=== PATIENT | male | born 1965 | race Caucasian/White ===

== ENCOUNTER 2021-07-09 01:03 | Inpatient (IN) | payer OTHER, BC ==
[2021-07-09] MEDS ORDERED: Norepinephrine 8 MG/0.9% NS 250 ML ONE (01:14)
[2021-07-09] MEDS ORDERED: Succinylcholine 200 MG/10 ml SYRINGE FS ONE (01:14)
[2021-07-09] MEDS ORDERED: EPINEPHrine 1 MG/10 ML Abboject SYRINGE ONE (01:16)
[2021-07-09 01:20] LABS: #Lymphocytes 1.7 thou/uL (1.20-3.40); #Neutrophils 15.9 thou/uL (1.40-6.50); %Basophils 0.2 % (0.0-1.0); %Eosinophils 0.2 % (0.0-10.0); %Lymphocytes 9.3 % (21.0-51.0); %Monocytes 5.4 % (0.0-10.0); %Neutrophils 84.8 % (42.0-75.0); Hemoglobin 14.8 g/dL (14.0-18.0); Mean Corpuscular HGB CONC 33.6 g/dL (32.0-36.0); Mean Corpuscular Hemoglobin 32.2 pg (27.0-31.0); Mean Corpuscular Volume 95.8 fL (78.0-98.0); Mean Platelet Volume 7.4 fL (7.4-10.4); Platelet Count 340 thou/uL (130-400); Red Blood Cell (RBC) Count 4.61 mill/uL (4.70-6.10); White Blood Cell (WBC) Count 18.7 thou/uL (4.8-10.8)
[2021-07-09 01:33] LABS: INR-International Normal Ratio 1.1; PTT 27.6 sec (22.9-36.1); Prothrombin Time 14.7 sec (12.0-14.7)
[2021-07-09 01:41] LABS: Bacteria/HPF None Seen HPF (None Seen); Bilirubin Negative (Negative); Blood, Urine 2+ (Negative); Clarity Clear (Clear); Glucose, Urine (Dipstick) Normal (Negative); Ketone, Urine Negative (Negative); Leukocyte Negative Leu/uL (Negative); Nitrite Negative (Negative); Protein, Urine (Dipstick) 70 mg/dL (Neg-Trace); RBC/HPF 0-3 HPF (0-3); Specific Gravity, Urine 1.026 (1.002-1.036); Squamous Epithelial 0-3 HPF (0-3); Urobilinogen Normal mg/dL (Less than 2); WBC/HPF 0-3 HPF (0-3)
[2021-07-09] MEDS ORDERED: Fentanyl 100 MCG/2 ML VIAL ONE (01:43)
[2021-07-09 01:44] LABS: ALT (SGPT) 79 U/L (8-55); AST (SGOT) 65 U/L (5-34); Albumin 3.7 g/dL (3.5-5.0); Alcohol 190 mg/dL (Less than 10); Alkaline Phosphatase 64 U/L (40-110); Anion Gap 19 mmol/L (10-20); BUN (Urea Nitrogen) 28 mg/dL (8.4-25.7); Bilirubin, Total 0.3 mg/dL (0.2-1.2); Calc. Creatinine Clearance 0 mL/min (70-130); Calcium 8.6 mg/dL (7.8-10.44); Carbon Dioxide 18 mmol/L (22-29); Chloride 109 mmol/L (98-107); Globulin 2.7 g/dL (2.4-3.5); Glucose 220 mg/dL (70-105); Potassium 4.8 mmol/L (3.5-5.1); Protein, Total 6.4 g/dL (6.0-8.3); Sodium 141 mmol/L (136-145)
[2021-07-09 01:50] LABS: Sperm/HPF 2+ HPF (None Seen)
[2021-07-09] MEDS ORDERED: Dextrose 50% Abboject 50 ML SYRINGE SLOW IVP PRN (02:00)
[2021-07-09] MEDS ORDERED: Sodium Chloride 0.9% 1,000 ML IV SCH ×3 (02:00→11:30)
[2021-07-09] MEDS ORDERED: HumaLOG 300 UNITS/3 ML VIAL SC PRN (02:00)
[2021-07-09] MEDS ORDERED: Ondansetron PF 4 MG/2 ML Vial IVP PRN (02:00)
[2021-07-09] MEDS ORDERED: Morphine 2 MG/ML VIAL SLOW IVP PRN (02:00)
[2021-07-09] MEDS ORDERED: Promethazine HCl 25 MG/ML VIAL IM PRN ×2 (02:00→14:09)
[2021-07-09] MEDS ORDERED: Dextrose 5% in Water 1,000 ML IV PRN (02:00)
[2021-07-09] MEDS ORDERED: Calcium Chloride 1 GM/10 ML Abboject SYRINGE ONE (02:10)
[2021-07-09] MEDS ORDERED: Sodium Bicarb 50 MEQ/50 ML Abboject 8.4% SYRINGE IVP SCH (02:15)
[2021-07-09] MEDS ORDERED: Calcium Chloride 13.6 MEQ in Sodium Chloride 0.9% 100 ML IVPB SCH (02:15)
[2021-07-09 02:25] LABS: Analyzer IN Cardio ER; Base Excess (BEa) -11.4 mEq/L (-2.0 to +3.0); CO2 Tension 41.1 mmHg (35.0-45.0); Calcium, Ionized (arterial) 1.08 mmol/L (1.12-1.30); Carboxyhemoglobin (COHb) 0.3 gm% (0.0-3.0); Hemoglobin (Hb) 15.2 g/dL (14.0-18.0); O2 Tension (PaO2), arterial 271.1 mmHg (80.0-100.0); Potassium - ABG Lab 4.81 mmol/L (3.70-5.30)
[2021-07-09 02:32] LABS: ALV-art Gradient 390.525 mmHg (0-20); Puncture Site RRA; pH, Arterial 7.21 (7.35-7.45)
[2021-07-09] MEDS ORDERED: Sodium Bicarbonate 100 MEQ in Dextrose 5% in Water 1,000 ML IV SCH (03:45)
[2021-07-09 04:01] LABS: SARS-CoV-2 NAA Rapid Test Not Detected (NotDetected)
[2021-07-09] MEDS: Sodium Chloride 0.9% 1,000 ML IV SCH ×5 (04:26→22:19)
[2021-07-09 05:11] LABS: Lactic Acid 3.7 mmol/L (0.5-2.2)
[2021-07-09 05:15] LABS: Anion Gap 17 mmol/L (10-20); BUN (Urea Nitrogen) 23 mg/dL (8.4-25.7); Calc. Creatinine Clearance 102 mL/min (70-130); Calcium 8.6 mg/dL (7.8-10.44); Carbon Dioxide 20 mmol/L (22-29); Chloride 111 mmol/L (98-107); Glucose 210 mg/dL (70-105); Potassium 4.8 mmol/L (3.5-5.1); Sodium 143 mmol/L (136-145)
[2021-07-09 05:16] LABS: #Lymphocytes 0.9 thou/uL (1.20-3.40); #Monocytes 1.3 thou/uL (0.11-0.59); #Neutrophils 9.7 thou/uL (1.40-6.50); %Eosinophils 0.1 % (0.0-10.0); %Lymphocytes 7.3 % (21.0-51.0); %Monocytes 11.1 % (0.0-10.0); %Neutrophils 81.5 % (42.0-75.0); Hemoglobin 15.1 g/dL (14.0-18.0); Mean Corpuscular HGB CONC 33.8 g/dL (32.0-36.0); Mean Corpuscular Hemoglobin 32.3 pg (27.0-31.0); Mean Corpuscular Volume 95.5 fL (78.0-98.0); Mean Platelet Volume 7.5 fL (7.4-10.4); Phosphorus 4.1 mg/dL (2.3-4.7); Platelet Count 285 thou/uL (130-400); RBC Distribution Width 12.2 % (11.5-14.5); Red Blood Cell (RBC) Count 4.69 mill/uL (4.70-6.10); White Blood Cell (WBC) Count 11.8 thou/uL (4.8-10.8)
[2021-07-09] MEDS: Norepinephrine 8 MG/0.9% NS 250 ML IVPB SCH ×2 (05:30→11:15)
[2021-07-09] MEDS ORDERED: Lorazepam 2 MG/ML VIAL IM PRN (07:37)
[2021-07-09] MEDS ORDERED: Lorazepam 1 MG TAB PO PRN (07:37)
[2021-07-09] MEDS ORDERED: Ondansetron ODT 4 MG TAB PO PRN (07:37)
[2021-07-09] MEDS ORDERED: Electrolyte Replacement Protocol 1 EACH FS SCH (07:45)
[2021-07-09] MEDS ORDERED: Electrolyte Replacement Protocol FS PRN (08:15)
[2021-07-09] MEDS ORDERED: Famotidine/PF 20 mg/2ml Vial SLOW IVP SCH (09:00)
[2021-07-09] MEDS: Thiamine HCl 200 MG/2 ML VIAL SLOW IVP SCH (09:09)
[2021-07-09] MEDS: Multivit, Therapeutic 1 TAB PO SCH (09:10)
[2021-07-09] MEDS: Lorazepam 1 MG TAB PO SCH ×3 (09:10→21:57)
[2021-07-09] MEDS: Folic Acid 1 MG TAB PO SCH (09:10)
[2021-07-09] MEDS ORDERED: Iopamidol 370 76% 100 ML VIAL ONE (09:14)
[2021-07-09] MEDS: fentaNYL Citrate-0.9 % NaCl/PF 100 ML IV SCH (09:30)
[2021-07-09 09:52] LABS: Amphetamine Not Detected (NotDetected); Barbiturates Screen Not Detected (NotDetected); Benzodiazepine Screen Not Detected (NotDetected); Cocaine Metabolite Screen Not Detected (NotDetected); Methadone Not Detected (NotDetected); Methamphetamine Not Detected (NotDetected); Opiate Screen Not Detected (NotDetected); Oxycodone Screen Not Detected (NotDetected); Phencyclidine (PCP) Not Detected (NotDetected); THC/Cannabinoid Screen Not Detected (NotDetected); Tricyclic Screen Not Detected (NotDetected)
[2021-07-09] MEDS ORDERED: Magnesium 2 GM/50 ML(in water) 2 GM in Premix Bag 1 BAG IVPB SCH (10:00)
[2021-07-09 11:41] LABS: Base Excess (BEa) -0.9 mEq/L (-2.0 to +3.0); CO2 Tension 46.2 mmHg (35.0-45.0); Calcium, Ionized (arterial) 1.12 mmol/L (1.12-1.30); Carboxyhemoglobin (COHb) 0.4 gm% (0.0-3.0); Hemoglobin (Hb) 14.9 g/dL (14.0-18.0); O2 Tension (PaO2), arterial 83.2 mmHg (80.0-100.0); Potassium - ABG Lab 3.97 mmol/L (3.70-5.30); pH, Arterial 7.35 (7.35-7.45)
[2021-07-09 11:43] LABS: Puncture Site Arterial Line
[2021-07-09] MEDS ORDERED: Fentanyl 250 MCG/5 ML VIAL ONE (13:06)
[2021-07-09] MEDS ORDERED: Thrombin 5000 UNITS/5 ML VIAL ONE ×2 (13:17→17:35)
[2021-07-09] MEDS ORDERED: Esmolol 100 MG/10 ML VIAL ONE (13:52)
[2021-07-09] MEDS ORDERED: PROPOFOL 200 MG/20 ML VIAL ONE (13:52)
[2021-07-09] MEDS ORDERED: Vecuronium 10 MG VIAL ONE (13:52)
[2021-07-09] MEDS ORDERED: Rocuronium Bromide 10 MG/ML (10ML VIAL) ONE (13:52)
[2021-07-09] MEDS ORDERED: Clindamycin/D5W 900 MG in Premix Bag 1 BAG IVPB SCH (14:30)
[2021-07-09] MEDS ORDERED: Insulin Regular 300 UNITS/3 ML VIAL ONE (15:18)
[2021-07-09] MEDS ORDERED: Bacitracin Zinc Ointment 30 gm TUBE ONE (16:06)
[2021-07-09] MEDS ORDERED: CEFAZOLIN 1 GM VIAL ONE (16:33)
[2021-07-09] MEDS ORDERED: Rocuronium Bromide 50 MG/5 ML VIAL ONE (18:58)
[2021-07-09] MEDS: Famotidine/PF 20 mg/2ml Vial SLOW IVP SCH (21:55)
[2021-07-09] MEDS: Acetaminophen 325 MG TAB PO PRN (21:55)
[2021-07-09] MEDS: Clindamycin/D5W 900 MG in Premix Bag 1 BAG IVPB SCH (21:56)
[2021-07-10] MEDS: Insulin Regular 300 UNITS/3 ML VIAL SC PRN ×3 (01:13→21:59)
[2021-07-10] MEDS: fentaNYL Citrate-0.9 % NaCl/PF 100 ML IV SCH ×2 (01:28→13:07)
[2021-07-10] MEDS: Sodium Chloride 0.9% 1,000 ML IV SCH ×4 (04:52→17:00)
[2021-07-10] MEDS: Lorazepam 1 MG TAB PO SCH ×2 (04:55→09:10)
[2021-07-10 05:08] LABS: #Lymphocytes 0.6 thou/uL (1.20-3.40); #Monocytes 0.7 thou/uL (0.11-0.59); #Neutrophils 5.6 thou/uL (1.40-6.50); %Basophils 0.4 % (0.0-1.0); %Lymphocytes 7.9 % (21.0-51.0); %Monocytes 10.7 % (0.0-10.0); %Neutrophils 80.9 % (42.0-75.0); Hemoglobin 12.1 g/dL (14.0-18.0); Mean Corpuscular HGB CONC 33.6 g/dL (32.0-36.0); Mean Corpuscular Hemoglobin 32.5 pg (27.0-31.0); Mean Corpuscular Volume 96.7 fL (78.0-98.0); Mean Platelet Volume 7.4 fL (7.4-10.4); Platelet Count 218 thou/uL (130-400); RBC Distribution Width 12.5 % (11.5-14.5); Red Blood Cell (RBC) Count 3.72 mill/uL (4.70-6.10)
[2021-07-10 05:26] LABS: Lactic Acid 1.5 mmol/L (0.5-2.2)
[2021-07-10] MEDS: Clindamycin/D5W 900 MG in Premix Bag 1 BAG IVPB SCH ×3 (05:40→21:59)
[2021-07-10 05:43] LABS: ALT (SGPT) 105 U/L (8-55); AST (SGOT) 82 U/L (5-34); Alkaline Phosphatase 54 U/L (40-110); Anion Gap 11 mmol/L (10-20); BUN (Urea Nitrogen) 14 mg/dL (8.4-25.7); Bilirubin, Total 0.7 mg/dL (0.2-1.2); Calc. Creatinine Clearance 131 mL/min (70-130); Calcium 7.2 mg/dL (7.8-10.44); Carbon Dioxide 25 mmol/L (22-29); Chloride 109 mmol/L (98-107); Globulin 2.4 g/dL (2.4-3.5); Glucose 190 mg/dL (70-105); Potassium 4.1 mmol/L (3.5-5.1); Protein, Total 5.4 g/dL (6.0-8.3); Sodium 141 mmol/L (136-145)
[2021-07-10 07:03] LABS: Actual Bicarbonate (HCO3a) 24.3 mEq/L (22-28); Base Excess (BEa) -0.4 mEq/L (-2.0 to +3.0); CO2 Tension 40.1 mmHg (35.0-45.0); Calcium, Ionized (arterial) 0.97 mmol/L (1.12-1.30); Carboxyhemoglobin (COHb) 0.6 gm% (0.0-3.0); Hemoglobin (Hb) 12.7 g/dL (14.0-18.0); O2 Tension (PaO2), arterial 98.2 mmHg (80.0-100.0); Potassium - ABG Lab 3.86 mmol/L (3.70-5.30)
[2021-07-10 07:06] LABS: ALV-art Gradient 136.875 mmHg (0-20); Puncture Site Arterial Line
[2021-07-10] MEDS ORDERED: Lorazepam 1 MG TAB PO PRN (07:37)
[2021-07-10] MEDS: Famotidine/PF 20 mg/2ml Vial SLOW IVP SCH ×2 (09:10→20:20)
[2021-07-10] MEDS: Folic Acid 1 MG TAB PO SCH (09:10)
[2021-07-10] MEDS: Multivit, Therapeutic 1 TAB PO SCH (09:11)
[2021-07-10] MEDS: Thiamine HCl 200 MG/2 ML VIAL SLOW IVP SCH (09:14)
[2021-07-10] MEDS: Dexamethasone 4 mg/ml Vial SLOW IVP SCH ×2 (10:19→18:15)
[2021-07-10] MEDS ORDERED: Calcium Chloride 1 GM/10 ML Abboject SYRINGE IVP SCH (16:00)
[2021-07-10] MEDS ORDERED: Scopolamine 1.5 mg/72 hour Patch TD SCH (20:00)
[2021-07-10] MEDS: tiZANidine HCl 4 MG TAB PO PRN (22:07)
[2021-07-11] MEDS: Acetaminophen 325 MG TAB PO PRN ×4 (00:48→23:31)
[2021-07-11] MEDS: Dexamethasone 4 mg/ml Vial SLOW IVP SCH (00:49)
[2021-07-11] MEDS: Insulin Regular 300 UNITS/3 ML VIAL SC PRN ×2 (00:49→06:17)
[2021-07-11 03:56] LABS: Actual Bicarbonate (HCO3a) 24.8 mEq/L (22-28); Base Excess (BEa) 1.2 mEq/L (-2.0 to +3.0); CO2 Tension 35.9 mmHg (35.0-45.0); Calcium, Ionized (arterial) 1.15 mmol/L (1.12-1.30); Carboxyhemoglobin (COHb) 0.7 gm% (0.0-3.0); Hemoglobin (Hb) 12.1 g/dL (14.0-18.0); Potassium - ABG Lab 4.21 mmol/L (3.70-5.30); pH, Arterial 7.46 (7.35-7.45)
[2021-07-11 03:57] LABS: ALV-art Gradient 133.685 mmHg (0-20); O2 Tension (PaO2), arterial 49.6 mmHg (80.0-100.0); Puncture Site LRA
[2021-07-11 03:59] LABS: #Lymphocytes 0.5 thou/uL (1.20-3.40); #Monocytes 0.7 thou/uL (0.11-0.59); %Basophils 0.2 % (0.0-1.0); %Lymphocytes 6.5 % (21.0-51.0); %Monocytes 9.1 % (0.0-10.0); %Neutrophils 84.2 % (42.0-75.0); Hemoglobin 11.3 g/dL (14.0-18.0); Mean Corpuscular HGB CONC 33.6 g/dL (32.0-36.0); Mean Corpuscular Hemoglobin 32.8 pg (27.0-31.0); Mean Corpuscular Volume 97.8 fL (78.0-98.0); Mean Platelet Volume 7.5 fL (7.4-10.4); Platelet Count 181 thou/uL (130-400); RBC Distribution Width 12.2 % (11.5-14.5); Red Blood Cell (RBC) Count 3.45 mill/uL (4.70-6.10); White Blood Cell (WBC) Count 7.1 thou/uL (4.8-10.8)
[2021-07-11] MEDS ORDERED: Furosemide 20 MG/2 ML VIAL SLOW IVP SCH ×2 (04:00→10:00)
[2021-07-11 04:51] LABS: ALT (SGPT) 80 U/L (8-55); AST (SGOT) 75 U/L (5-34); Albumin 2.9 g/dL (3.5-5.0); Alkaline Phosphatase 59 U/L (40-110); Anion Gap 12 mmol/L (10-20); BUN (Urea Nitrogen) 15 mg/dL (8.4-25.7); Bilirubin, Total 0.6 mg/dL (0.2-1.2); Calc. Creatinine Clearance 158 mL/min (70-130); Calcium 8.3 mg/dL (7.8-10.44); Carbon Dioxide 26 mmol/L (22-29); Chloride 109 mmol/L (98-107); Globulin 2.8 g/dL (2.4-3.5); Glucose 173 mg/dL (70-105); Potassium 4.3 mmol/L (3.5-5.1); Protein, Total 5.7 g/dL (6.0-8.3); Sodium 143 mmol/L (136-145)
[2021-07-11] MEDS: Oxazepam 10 MG CAP PO SCH ×3 (06:09→20:53)
[2021-07-11] MEDS: Clindamycin/D5W 900 MG in Premix Bag 1 BAG IVPB SCH (06:09)
[2021-07-11] MEDS ORDERED: Lorazepam 1 MG TAB PO PRN (07:37)
[2021-07-11] MEDS: Famotidine/PF 20 mg/2ml Vial SLOW IVP SCH ×2 (08:16→20:52)
[2021-07-11] MEDS: tiZANidine HCl 4 MG TAB PO PRN ×2 (08:16→17:53)
[2021-07-11] MEDS: Multivit, Therapeutic 1 TAB PO SCH (08:16)
[2021-07-11] MEDS: Folic Acid 1 MG TAB PO SCH (08:16)
[2021-07-11] MEDS ORDERED: Lorazepam 0.5 MG TAB PO SCH (09:00)
[2021-07-11] MEDS: Enoxaparin Sodium 40 MG/0.4 ML SYRINGE SC SCH (09:22)
[2021-07-11] MEDS ORDERED: cefTRIAXone\\ROCEPHIN 2 GM in Sodium Chloride 0.9% 100 ML IVPB SCH (10:30)
[2021-07-11] MEDS: Thiamine 100 MG TAB PO SCH ×2 (10:41→10:42)
[2021-07-11] MEDS: Thiamine HCl 200 MG/2 ML VIAL SLOW IVP SCH (10:43)
[2021-07-11 12:19] LABS: Anion Gap 12 mmol/L (10-20); BUN (Urea Nitrogen) 19 mg/dL (8.4-25.7); Calc. Creatinine Clearance 146 mL/min (70-130); Calcium 8.8 mg/dL (7.8-10.44); Carbon Dioxide 27 mmol/L (22-29); Chloride 105 mmol/L (98-107); Glucose 188 mg/dL (70-105); Magnesium 1.9 mg/dL (1.6-2.6); Potassium 3.9 mmol/L (3.5-5.1); Sodium 140 mmol/L (136-145)
[2021-07-11 12:40] LABS: Phosphorus 1.7 mg/dL (2.3-4.7)
[2021-07-11] MEDS ORDERED: Magnesium 2 GM/50 ML(in water) 2 GM in Premix Bag 1 BAG IVPB SCH (13:15)
[2021-07-11] MEDS: PHOS-NAK 1 PKT PACK PO SCH ×2 (14:04→17:33)
[2021-07-11] MEDS ORDERED: NS 0.9% w/ 20 MEQ KCL 1,000 ML/1,000 ML BAG IV SCH (19:30)
[2021-07-11] MEDS: cefTRIAXone\\ROCEPHIN 2 GM in Sodium Chloride 0.9% 100 ML IVPB SCH (20:52)
[2021-07-11] MEDS ORDERED: traMADol HCl 50 MG TAB PO SCH (23:59)
[2021-07-12] MEDS: Morphine 2 MG/ML VIAL SLOW IVP PRN ×2 (00:06→03:52)
[2021-07-12] MEDS: Insulin Regular 300 UNITS/3 ML VIAL SC PRN ×3 (00:07→10:30)
[2021-07-12] MEDS ORDERED: traMADol HCl 50 MG TAB PO SCH (00:30)
[2021-07-12] MEDS: tiZANidine HCl 4 MG TAB PO PRN ×2 (01:28→14:54)
[2021-07-12 05:36] LABS: #Lymphocytes 0.5 thou/uL (1.20-3.40); #Monocytes 0.4 thou/uL (0.11-0.59); #Neutrophils 5.8 thou/uL (1.40-6.50); %Eosinophils 0.1 % (0.0-10.0); %Lymphocytes 7.9 % (21.0-51.0); %Monocytes 6.4 % (0.0-10.0); %Neutrophils 85.6 % (42.0-75.0); Hemoglobin 11.2 g/dL (14.0-18.0); Mean Corpuscular Hemoglobin 31.2 pg (27.0-31.0); Mean Corpuscular Volume 97.4 fL (78.0-98.0); Mean Platelet Volume 7.8 fL (7.4-10.4); Platelet Count 250 thou/uL (130-400); RBC Distribution Width 12.1 % (11.5-14.5); Red Blood Cell (RBC) Count 3.58 mill/uL (4.70-6.10); White Blood Cell (WBC) Count 6.8 thou/uL (4.8-10.8)
[2021-07-12 05:58] LABS: ALT (SGPT) 67 U/L (8-55); AST (SGOT) 48 U/L (5-34); Albumin 2.8 g/dL (3.5-5.0); Alkaline Phosphatase 56 U/L (40-110); Anion Gap 11 mmol/L (10-20); BUN (Urea Nitrogen) 24 mg/dL (8.4-25.7); Bilirubin, Total 0.6 mg/dL (0.2-1.2); Calc. Creatinine Clearance 182 mL/min (70-130); Calcium 8.3 mg/dL (7.8-10.44); Carbon Dioxide 28 mmol/L (22-29); Chloride 106 mmol/L (98-107); Globulin 2.9 g/dL (2.4-3.5); Glucose 160 mg/dL (70-105); Potassium 3.6 mmol/L (3.5-5.1); Protein, Total 5.7 g/dL (6.0-8.3); Sodium 141 mmol/L (136-145)
[2021-07-12] MEDS: Oxazepam 10 MG CAP PO SCH ×3 (05:58→21:37)
[2021-07-12] MEDS: traMADol HCl 50 MG TAB PO SCH ×4 (05:58→23:05)
[2021-07-12] MEDS ORDERED: Lorazepam 0.5 MG TAB PO PRN (07:37)
[2021-07-12] MEDS: cefTRIAXone\\ROCEPHIN 2 GM in Sodium Chloride 0.9% 100 ML IVPB SCH ×2 (09:12→21:39)
[2021-07-12] MEDS: Folic Acid 1 MG TAB PO SCH (09:13)
[2021-07-12] MEDS: Thiamine 100 MG TAB PO SCH (09:13)
[2021-07-12] MEDS: Famotidine/PF 20 mg/2ml Vial SLOW IVP SCH ×2 (09:13→21:36)
[2021-07-12] MEDS: Multivit, Therapeutic 1 TAB PO SCH (09:14)
[2021-07-12] MEDS: NS 0.9% w/ 20 MEQ KCL 1,000 ML/1,000 ML BAG IV SCH ×2 (09:15→10:16)
[2021-07-12] MEDS ORDERED: Polyethylene Glycol 3350 17 GM Packet PO SCH (10:00)
[2021-07-12] MEDS ORDERED: Senokot S 8.6-50 MG TAB PO SCH (10:00)
[2021-07-12] MEDS: Enoxaparin Sodium 40 MG/0.4 ML SYRINGE SC SCH (10:10)
[2021-07-12] MEDS ORDERED: Bisacodyl 10 MG SUPP PR SCH (14:45)
[2021-07-12] MEDS ORDERED: Rocuronium Bromide 10 MG/ML (10ML VIAL) ONE (15:16)
[2021-07-12] MEDS ORDERED: Propofol 1,000 MG/100 ML VIAL IV ONE (15:25)
[2021-07-12] MEDS: Propofol 1,000 MG/100 ML VIAL IV PRN ×2 (15:30→17:21)
[2021-07-12] MEDS ORDERED: Propofol BOLUS 1,000 MG/100 ML VIAL IV PRN (16:30)
[2021-07-12] MEDS ORDERED: Morphine 4 MG/ML VIAL ONE ×3 (16:34→20:07)
[2021-07-12] MEDS ORDERED: Midazolam HCl 2 mg/2 ml Vial ONE (16:35)
[2021-07-12] MEDS: Midazolam HCl 2 mg/2 ml Vial IVP PRN ×4 (16:36→19:07)
[2021-07-12] MEDS: Morphine 4 MG/ML VIAL SLOW IVP PRN ×3 (16:36→18:40)
[2021-07-12] MEDS ORDERED: Morphine 2 MG/ML VIAL SLOW IVP PRN ×2 (16:45→18:26)
[2021-07-12 16:58] LABS: Actual Bicarbonate (HCO3a) 27.5 mEq/L (22-28); Base Excess (BEa) 3.2 mEq/L (-2.0 to +3.0); CO2 Tension 40.6 mmHg (35.0-45.0); Carboxyhemoglobin (COHb) 0.3 gm% (0.0-3.0); Hemoglobin (Hb) 12.3 g/dL (14.0-18.0); O2 Tension (PaO2), arterial 64.4 mmHg (80.0-100.0); pH, Arterial 7.45 (7.35-7.45)
[2021-07-12 16:59] LABS: Puncture Site LRA
[2021-07-12] MEDS: Neostigmine 0.5 MG in Syringe 0 ML SC SCH ×2 (17:10→22:52)
[2021-07-12] MEDS ORDERED: Furosemide 20 MG/2 ML VIAL SLOW IVP SCH (17:15)
[2021-07-12] MEDS ORDERED: Midazolam In 0.9 % NaCl/PF 100 MG in Premix Bag 1 BAG IVPB SCH (19:15)
[2021-07-12] MEDS ORDERED: Morphine 4 MG/ML VIAL SLOW IVP PRN (20:05)
[2021-07-12] MEDS ORDERED: fentaNYL Citrate-0.9 % NaCl/PF 100 ML IVPB PRN (20:15)
[2021-07-12] MEDS ORDERED: Morphine 4 MG/ML VIAL SLOW IVP SCH (20:15)
[2021-07-12] MEDS: Potassium Chloride 40 MEQ in Premix Bag 1 BAG IVPB SCH ×2 (20:17→22:29)
[2021-07-12] MEDS: Potassium Chloride 20 MEQ in Premix Bag 1 BAG IVPB SCH ×2 (21:31→23:06)
[2021-07-12] MEDS: Senokot S 8.6-50 MG TAB PO SCH (21:37)
[2021-07-12] MEDS ORDERED: Sodium Chloride 0.9% 1,000 ML IV SCH (22:00)
[2021-07-13] MEDS: Insulin Regular 300 UNITS/3 ML VIAL SC PRN ×3 (00:32→17:19)
[2021-07-13] MEDS: tiZANidine HCl 4 MG TAB PO PRN (02:23)
[2021-07-13] MEDS: Haloperidol Lactate 5 MG/ML VIAL SLOW IVP SCH ×2 (03:12→03:27)
[2021-07-13] MEDS ORDERED: Haloperidol Lactate 5 MG/ML VIAL SLOW IVP SCH (03:15)
[2021-07-13] MEDS ORDERED: Morphine 2 MG/ML VIAL SLOW IVP SCH (03:15)
[2021-07-13] MEDS ORDERED: Haloperidol Lactate 5 MG/ML VIAL ONE (03:26)
[2021-07-13 04:01] LABS: #Lymphocytes 0.4 thou/uL (1.20-3.40); #Monocytes 0.5 thou/uL (0.11-0.59); #Neutrophils 5.9 thou/uL (1.40-6.50); %Basophils 0.5 % (0.0-1.0); %Eosinophils 0.1 % (0.0-10.0); %Lymphocytes 5.4 % (21.0-51.0); %Neutrophils 86.9 % (42.0-75.0); Hemoglobin 10.7 g/dL (14.0-18.0); Mean Corpuscular HGB CONC 33.1 g/dL (32.0-36.0); Mean Corpuscular Hemoglobin 32.3 pg (27.0-31.0); Mean Corpuscular Volume 97.4 fL (78.0-98.0); Platelet Count 251 thou/uL (130-400); RBC Distribution Width 12.2 % (11.5-14.5); Red Blood Cell (RBC) Count 3.31 mill/uL (4.70-6.10); White Blood Cell (WBC) Count 6.8 thou/uL (4.8-10.8)
[2021-07-13] MEDS ORDERED: Propofol 1,000 MG/100 ML VIAL IV ONE (04:05)
[2021-07-13 04:25] LABS: ALT (SGPT) 51 U/L (8-55); AST (SGOT) 31 U/L (5-34); Albumin 2.8 g/dL (3.5-5.0); Alkaline Phosphatase 54 U/L (40-110); Anion Gap 13 mmol/L (10-20); BUN (Urea Nitrogen) 30 mg/dL (8.4-25.7); Bilirubin, Total 0.7 mg/dL (0.2-1.2); Calc. Creatinine Clearance 171 mL/min (70-130); Calcium 7.9 mg/dL (7.8-10.44); Carbon Dioxide 24 mmol/L (22-29); Chloride 107 mmol/L (98-107); Globulin 2.6 g/dL (2.4-3.5); Glucose 179 mg/dL (70-105); Potassium 3.9 mmol/L (3.5-5.1); Protein, Total 5.4 g/dL (6.0-8.3); Sodium 140 mmol/L (136-145)
[2021-07-13] MEDS: Neostigmine 0.5 MG in Syringe 0 ML SC SCH ×4 (05:04→21:57)
[2021-07-13] MEDS: Oxazepam 10 MG CAP PO SCH ×3 (06:14→21:58)
[2021-07-13] MEDS: traMADol HCl 50 MG TAB PO SCH ×3 (06:36→18:34)
[2021-07-13 07:01] LABS: Actual Bicarbonate (HCO3a) 24.7 mEq/L (22-28); CO2 Tension 35.9 mmHg (35.0-45.0); Calcium, Ionized (arterial) 1.07 mmol/L (1.12-1.30); Carboxyhemoglobin (COHb) 0.2 gm% (0.0-3.0); Hemoglobin (Hb) 11.2 g/dL (14.0-18.0); Potassium - ABG Lab 3.85 mmol/L (3.70-5.30); pH, Arterial 7.46 (7.35-7.45)
[2021-07-13 07:08] LABS: ALV-art Gradient 327.025 mmHg (0-20); O2 Tension (PaO2), arterial 55.9 mmHg (80.0-100.0); Puncture Site LRA
[2021-07-13] MEDS ORDERED: Calcium Chloride 1 GM/10 ML Abboject SYRINGE IVP SCH ×2 (08:00→08:12)
[2021-07-13] MEDS ORDERED: Calcium Chloride 13.6 MEQ in Sodium Chloride 0.9% 100 ML IVPB SCH (08:15)
[2021-07-13] MEDS ORDERED: Hydrocortisone Sod Succ/PF 100 mg/2 ml Vial IVP SCH (08:30)
[2021-07-13] MEDS: cefTRIAXone\\ROCEPHIN 2 GM in Sodium Chloride 0.9% 100 ML IVPB SCH ×2 (09:00→21:27)
[2021-07-13] MEDS: NS 0.9% w/ 20 MEQ KCL 1,000 ML/1,000 ML BAG IV SCH (09:38)
[2021-07-13] MEDS: Propofol 1,000 MG/100 ML VIAL IV PRN ×3 (10:02→21:28)
[2021-07-13] MEDS: Enoxaparin Sodium 40 MG/0.4 ML SYRINGE SC SCH (10:03)
[2021-07-13] MEDS: Bisacodyl 10 MG SUPP PR SCH (10:03)
[2021-07-13] MEDS: Senokot S 8.6-50 MG TAB PO SCH ×2 (10:04→21:26)
[2021-07-13] MEDS: Polyethylene Glycol 3350 17 GM Packet PO SCH (10:04)
[2021-07-13] MEDS: Saccharomyces boulardii 250 MG CAP PO SCH (10:05)
[2021-07-13] MEDS: Thiamine 100 MG TAB PO SCH (10:05)
[2021-07-13] MEDS: Famotidine/PF 20 mg/2ml Vial SLOW IVP SCH ×2 (10:06→21:26)
[2021-07-13] MEDS: Folic Acid 1 MG TAB PO SCH (10:06)
[2021-07-13] MEDS: Multivit, Therapeutic 1 TAB PO SCH (10:06)
[2021-07-13] MEDS ORDERED: Iopamidol 370 76% 100 ML VIAL ONE (13:28)
[2021-07-13] MEDS: Hydrocortisone Sod Succ/PF 100 mg/2 ml Vial IVP SCH ×2 (16:13→21:27)
[2021-07-14] MEDS: traMADol HCl 50 MG TAB PO SCH ×5 (00:37→22:59)
[2021-07-14] MEDS: Hydrocortisone Sod Succ/PF 100 mg/2 ml Vial IVP SCH ×4 (03:28→22:00)
[2021-07-14] MEDS: Neostigmine 0.5 MG in Syringe 0 ML SC SCH ×4 (03:30→22:55)
[2021-07-14 03:56] LABS: #Lymphocytes 0.8 thou/uL (1.20-3.40); #Monocytes 0.5 thou/uL (0.11-0.59); #Neutrophils 4.5 thou/uL (1.40-6.50); %Basophils 0.1 % (0.0-1.0); %Eosinophils 0.6 % (0.0-10.0); %Lymphocytes 13.8 % (21.0-51.0); %Monocytes 8.4 % (0.0-10.0); %Neutrophils 77.2 % (42.0-75.0); Hemoglobin 10.5 g/dL (14.0-18.0); Mean Corpuscular HGB CONC 32.1 g/dL (32.0-36.0); Mean Corpuscular Hemoglobin 31.1 pg (27.0-31.0); Mean Platelet Volume 6.9 fL (7.4-10.4); Platelet Count 286 thou/uL (130-400); RBC Distribution Width 12.3 % (11.5-14.5); Red Blood Cell (RBC) Count 3.38 mill/uL (4.70-6.10); White Blood Cell (WBC) Count 5.8 thou/uL (4.8-10.8)
[2021-07-14 04:12] LABS: Phosphorus 2.6 mg/dL (2.3-4.7)
[2021-07-14 04:14] LABS: ALT (SGPT) 41 U/L (8-55); AST (SGOT) 19 U/L (5-34); Albumin 2.7 g/dL (3.5-5.0); Alkaline Phosphatase 49 U/L (40-110); Anion Gap 11 mmol/L (10-20); BUN (Urea Nitrogen) 26 mg/dL (8.4-25.7); Bilirubin, Total 0.7 mg/dL (0.2-1.2); Calc. Creatinine Clearance 192 mL/min (70-130); Calcium 8.4 mg/dL (7.8-10.44); Carbon Dioxide 26 mmol/L (22-29); Chloride 108 mmol/L (98-107); Globulin 2.7 g/dL (2.4-3.5); Glucose 147 mg/dL (70-105); Magnesium 2.1 mg/dL (1.6-2.6); Potassium 3.7 mmol/L (3.5-5.1); Protein, Total 5.4 g/dL (6.0-8.3); Sodium 141 mmol/L (136-145)
[2021-07-14] MEDS: Oxazepam 10 MG CAP PO SCH ×3 (05:57→22:53)
[2021-07-14] MEDS: Propofol 1,000 MG/100 ML VIAL IV PRN ×4 (07:28→20:44)
[2021-07-14] MEDS ORDERED: Fentanyl 100 MCG/2 ML VIAL ONE (08:18)
[2021-07-14] MEDS: Famotidine/PF 20 mg/2ml Vial SLOW IVP SCH ×2 (09:58→22:00)
[2021-07-14] MEDS: Enoxaparin Sodium 40 MG/0.4 ML SYRINGE SC SCH (09:58)
[2021-07-14] MEDS: Saccharomyces boulardii 250 MG CAP PO SCH (09:58)
[2021-07-14] MEDS: Polyethylene Glycol 3350 17 GM Packet PO SCH (10:00)
[2021-07-14] MEDS: Bisacodyl 10 MG SUPP PR SCH (10:00)
[2021-07-14] MEDS: Thiamine 100 MG TAB PO SCH (10:00)
[2021-07-14] MEDS: Senokot S 8.6-50 MG TAB PO SCH ×2 (10:00→21:59)
[2021-07-14] MEDS: cefTRIAXone\\ROCEPHIN 2 GM in Sodium Chloride 0.9% 100 ML IVPB SCH ×2 (10:03→22:00)
[2021-07-14] MEDS: Folic Acid 1 MG TAB PO SCH (10:03)
[2021-07-14] MEDS: Multivit, Therapeutic 1 TAB PO SCH (10:03)
[2021-07-14] MEDS: Morphine 2 MG/ML VIAL SLOW IVP PRN (15:36)
[2021-07-14] MEDS: Insulin Regular 300 UNITS/3 ML VIAL SC PRN (18:29)
[2021-07-14] MEDS: NS 0.9% w/ 20 MEQ KCL 1,000 ML/1,000 ML BAG IV SCH (22:55)
[2021-07-15] MEDS: Insulin Regular 300 UNITS/3 ML VIAL SC PRN (00:26)
[2021-07-15] MEDS: Propofol 1,000 MG/100 ML VIAL IV PRN ×7 (00:30→20:44)
[2021-07-15] MEDS: Neostigmine 0.5 MG in Syringe 0 ML SC SCH ×4 (03:30→21:37)
[2021-07-15] MEDS: Hydrocortisone Sod Succ/PF 100 mg/2 ml Vial IVP SCH ×4 (03:30→20:17)
[2021-07-15 04:20] LABS: Anion Gap 13 mmol/L (10-20); BUN (Urea Nitrogen) 27 mg/dL (8.4-25.7); Calc. Creatinine Clearance 189 mL/min (70-130); Calcium 8.4 mg/dL (7.8-10.44); Carbon Dioxide 26 mmol/L (22-29); Chloride 107 mmol/L (98-107); Glucose 159 mg/dL (70-105); Magnesium 2.1 mg/dL (1.6-2.6); Phosphorus 3.5 mg/dL (2.3-4.7); Potassium 4.1 mmol/L (3.5-5.1); Sodium 142 mmol/L (136-145)
[2021-07-15 05:11] LABS: Band 6 % (5-11); Eosinophils 1 % (0-10); Hemoglobin 10.5 g/dL (14.0-18.0); Lymphocytes 17 % (21-51); MDiff Complete? YES; Mean Corpuscular HGB CONC 33.1 g/dL (32.0-36.0); Mean Corpuscular Hemoglobin 32.2 pg (27.0-31.0); Mean Corpuscular Volume 97.2 fL (78.0-98.0); Mean Platelet Volume 7.2 fL (7.4-10.4); Monocytes 10 % (0-10); Neutrophil 66 % (42-75); Platelet Count 294 thou/uL (130-400); RBC Distribution Width 12.2 % (11.5-14.5); Red Blood Cell (RBC) Count 3.25 mill/uL (4.70-6.10); White Blood Cell (WBC) Count 7.2 thou/uL (4.8-10.8)
[2021-07-15] MEDS: traMADol HCl 50 MG TAB PO SCH ×4 (05:34→23:57)
[2021-07-15] MEDS: Oxazepam 10 MG CAP PO SCH ×3 (05:34→21:08)
[2021-07-15 07:02] LABS: Actual Bicarbonate (HCO3a) 26.7 mEq/L (22-28); Base Excess (BEa) 2.9 mEq/L (-2.0 to +3.0); CO2 Tension 38.1 mmHg (35.0-45.0); Carboxyhemoglobin (COHb) 0.3 gm% (0.0-3.0); Hemoglobin (Hb) 12.1 g/dL (14.0-18.0); O2 Tension (PaO2), arterial 60.1 mmHg (80.0-100.0); Potassium - ABG Lab 4.11 mmol/L (3.70-5.30); pH, Arterial 7.46 (7.35-7.45)
[2021-07-15 07:27] LABS: ALV-art Gradient 248.775 mmHg (0-20); Puncture Site RRA
[2021-07-15] MEDS: NS 0.9% w/ 20 MEQ KCL 1,000 ML/1,000 ML BAG IV SCH ×2 (07:29→16:01)
[2021-07-15] MEDS ORDERED: Calcium Chloride 13.6 MEQ in Sodium Chloride 0.9% 100 ML IVPB SCH (08:15)
[2021-07-15] MEDS ORDERED: Calcium Chloride 1 GM/10 ML Abboject SYRINGE IVP SCH (08:15)
[2021-07-15] MEDS: Saccharomyces boulardii 250 MG CAP PO SCH (08:46)
[2021-07-15] MEDS: Senokot S 8.6-50 MG TAB PO SCH ×2 (08:46→20:12)
[2021-07-15] MEDS: Bisacodyl 10 MG SUPP PR SCH (08:46)
[2021-07-15] MEDS: Multivit, Therapeutic 1 TAB PO SCH (08:47)
[2021-07-15] MEDS: Polyethylene Glycol 3350 17 GM Packet PO SCH (08:48)
[2021-07-15] MEDS: Enoxaparin Sodium 40 MG/0.4 ML SYRINGE SC SCH (08:48)
[2021-07-15] MEDS: Famotidine/PF 20 mg/2ml Vial SLOW IVP SCH ×2 (08:48→20:11)
[2021-07-15] MEDS: cefTRIAXone\\ROCEPHIN 2 GM in Sodium Chloride 0.9% 100 ML IVPB SCH ×2 (08:49→20:11)
[2021-07-15] MEDS: Folic Acid 1 MG TAB PO SCH (08:51)
[2021-07-15] MEDS: fentaNYL Citrate-0.9 % NaCl/PF 100 ML IV SCH (10:54)
[2021-07-15 16:49] LABS: SARS-CoV-2 PCR by NAA Not Detected (NotDetected)
[2021-07-16] MEDS: Acetaminophen 325 MG TAB PO PRN ×3 (00:02→20:57)
[2021-07-16] MEDS: Insulin Regular 300 UNITS/3 ML VIAL SC PRN ×2 (00:13→12:43)
[2021-07-16] MEDS: Propofol 1,000 MG/100 ML VIAL IV PRN ×6 (01:52→22:35)
[2021-07-16] MEDS: Hydrocortisone Sod Succ/PF 100 mg/2 ml Vial IVP SCH ×4 (03:41→20:55)
[2021-07-16] MEDS: Neostigmine 0.5 MG in Syringe 0 ML SC SCH ×4 (03:41→21:02)
[2021-07-16 04:00] LABS: Hemoglobin 10.5 g/dL (14.0-18.0); Mean Corpuscular HGB CONC 33.7 g/dL (32.0-36.0); Mean Corpuscular Hemoglobin 32.8 pg (27.0-31.0); Mean Corpuscular Volume 97.2 fL (78.0-98.0); Mean Platelet Volume 6.9 fL (7.4-10.4); Platelet Count 309 thou/uL (130-400); RBC Distribution Width 12.2 % (11.5-14.5); Red Blood Cell (RBC) Count 3.21 mill/uL (4.70-6.10); White Blood Cell (WBC) Count 6.4 thou/uL (4.8-10.8)
[2021-07-16 04:10] LABS: Anion Gap 11 mmol/L (10-20); BUN (Urea Nitrogen) 25 mg/dL (8.4-25.7); Calc. Creatinine Clearance 196 mL/min (70-130); Calcium 8.2 mg/dL (7.8-10.44); Carbon Dioxide 27 mmol/L (22-29); Chloride 104 mmol/L (98-107); Glucose 131 mg/dL (70-105); Phosphorus 3.7 mg/dL (2.3-4.7); Potassium 4.3 mmol/L (3.5-5.1); Sodium 138 mmol/L (136-145)
[2021-07-16 04:27] LABS: Band 1 % (5-11); Eosinophils 1 % (0-10); Lymphocytes 16 % (21-51); MDiff Complete? YES; Monocytes 7 % (0-10); Myelocyte 2 % (0-0); Neutrophil 73 % (42-75)
[2021-07-16] MEDS ORDERED: Magnesium 2 GM/50 ML(in water) 2 GM in Premix Bag 1 BAG IVPB SCH (05:00)
[2021-07-16] MEDS: traMADol HCl 50 MG TAB PO SCH ×4 (05:50→23:25)
[2021-07-16] MEDS: Oxazepam 10 MG CAP PO SCH ×3 (05:50→21:02)
[2021-07-16] MEDS: NS 0.9% w/ 20 MEQ KCL 1,000 ML/1,000 ML BAG IV SCH (07:37)
[2021-07-16] MEDS: Enoxaparin Sodium 40 MG/0.4 ML SYRINGE SC SCH (08:32)
[2021-07-16] MEDS: Polyethylene Glycol 3350 17 GM Packet PO SCH (08:32)
[2021-07-16] MEDS: cefTRIAXone\\ROCEPHIN 2 GM in Sodium Chloride 0.9% 100 ML IVPB SCH ×2 (08:33→20:53)
[2021-07-16] MEDS: Folic Acid 1 MG TAB PO SCH (08:33)
[2021-07-16] MEDS: Saccharomyces boulardii 250 MG CAP PO SCH (08:33)
[2021-07-16] MEDS: Senokot S 8.6-50 MG TAB PO SCH ×2 (08:33→20:56)
[2021-07-16] MEDS: Famotidine/PF 20 mg/2ml Vial SLOW IVP SCH ×2 (08:33→20:55)
[2021-07-16] MEDS: Thiamine 100 MG TAB PO SCH (08:33)
[2021-07-16] MEDS: Bisacodyl 10 MG SUPP PR SCH (08:34)
[2021-07-16] MEDS: Multivit, Therapeutic 1 TAB PO SCH (08:34)
[2021-07-16] MEDS ORDERED: Fentanyl BOLUS 250 ML IVPB PRN (14:30)
[2021-07-16] MEDS: fentaNYL Citrate-0.9 % NaCl/PF 100 ML IV SCH (15:00)
[2021-07-16] MEDS: Morphine 2 MG/ML VIAL SLOW IVP PRN (22:34)
[2021-07-17] MEDS: Propofol 1,000 MG/100 ML VIAL IV PRN ×4 (01:55→11:19)
[2021-07-17] MEDS: Hydrocortisone Sod Succ/PF 100 mg/2 ml Vial IVP SCH ×4 (03:35→20:51)
[2021-07-17] MEDS: Neostigmine 0.5 MG in Syringe 0 ML SC SCH (03:35)
[2021-07-17 04:15] LABS: #Eosinphils 0.2 thou/uL (0.0-0.7); #Monocytes 0.7 thou/uL (0.11-0.59); %Basophils 0.3 % (0.0-1.0); %Eosinophils 3.3 % (0.0-10.0); %Lymphocytes 14.5 % (21.0-51.0); %Monocytes 10.2 % (0.0-10.0); %Neutrophils 71.6 % (42.0-75.0); Hemoglobin 10.4 g/dL (14.0-18.0); Mean Corpuscular HGB CONC 32.7 g/dL (32.0-36.0); Mean Corpuscular Hemoglobin 31.7 pg (27.0-31.0); Mean Corpuscular Volume 96.8 fL (78.0-98.0); Mean Platelet Volume 6.7 fL (7.4-10.4); Platelet Count 337 thou/uL (130-400); RBC Distribution Width 12.2 % (11.5-14.5); Red Blood Cell (RBC) Count 3.27 mill/uL (4.70-6.10)
[2021-07-17 04:28] LABS: Anion Gap 11 mmol/L (10-20); BUN (Urea Nitrogen) 27 mg/dL (8.4-25.7); Calc. Creatinine Clearance 191 mL/min (70-130); Calcium 7.9 mg/dL (7.8-10.44); Carbon Dioxide 28 mmol/L (22-29); Chloride 102 mmol/L (98-107); Glucose 148 mg/dL (70-105); Magnesium 2.2 mg/dL (1.6-2.6); Phosphorus 3.8 mg/dL (2.3-4.7); Potassium 4.6 mmol/L (3.5-5.1); Sodium 136 mmol/L (136-145)
[2021-07-17] MEDS: NS 0.9% w/ 20 MEQ KCL 1,000 ML/1,000 ML BAG IV SCH ×2 (04:44→14:19)
[2021-07-17] MEDS: Oxazepam 10 MG CAP PO SCH ×3 (05:09→21:12)
[2021-07-17] MEDS: traMADol HCl 50 MG TAB PO SCH ×3 (05:09→17:55)
[2021-07-17 06:59] LABS: Actual Bicarbonate (HCO3a) 28.1 mEq/L (22-28); Base Excess (BEa) 2.6 mEq/L (-2.0 to +3.0); CO2 Tension 47.1 mmHg (35.0-45.0); Calcium, Ionized (arterial) 1.09 mmol/L (1.12-1.30); Carboxyhemoglobin (COHb) 0.4 gm% (0.0-3.0); Hemoglobin (Hb) 12.9 g/dL (14.0-18.0); O2 Tension (PaO2), arterial 63.3 mmHg (80.0-100.0); Potassium - ABG Lab 4.32 mmol/L (3.70-5.30); pH, Arterial 7.39 (7.35-7.45)
[2021-07-17 07:17] LABS: Puncture Site RRA
[2021-07-17 07:18] LABS: ALV-art Gradient 234.325 mmHg (0-20)
[2021-07-17] MEDS ORDERED: Calcium Chloride 1 GM/10 ML Abboject SYRINGE IVP SCH (07:30)
[2021-07-17] MEDS ORDERED: Calcium Chloride 13.6 MEQ in Sodium Chloride 0.9% 100 ML IVPB SCH (08:15)
[2021-07-17 09:10] VITALS: BMI 41.2
[2021-07-17] MEDS: Enoxaparin Sodium 40 MG/0.4 ML SYRINGE SC SCH (09:54)
[2021-07-17] MEDS: cefTRIAXone\\ROCEPHIN 2 GM in Sodium Chloride 0.9% 100 ML IVPB SCH ×2 (09:54→20:46)
[2021-07-17] MEDS: Famotidine/PF 20 mg/2ml Vial SLOW IVP SCH ×2 (09:55→20:47)
[2021-07-17] MEDS: Polyethylene Glycol 3350 17 GM Packet PO SCH (09:55)
[2021-07-17] MEDS: Multivit, Therapeutic 1 TAB PO SCH (09:55)
[2021-07-17] MEDS: Saccharomyces boulardii 250 MG CAP PO SCH (09:55)
[2021-07-17] MEDS: Thiamine 100 MG TAB PO SCH (09:55)
[2021-07-17] MEDS: Bisacodyl 10 MG SUPP PR SCH (09:56)
[2021-07-17] MEDS: Folic Acid 1 MG TAB PO SCH (09:56)
[2021-07-17] MEDS: Senokot S 8.6-50 MG TAB PO SCH ×2 (09:57→20:47)
[2021-07-17] MEDS: fentaNYL Citrate-0.9 % NaCl/PF 100 ML IV SCH (10:54)
[2021-07-17] MEDS ORDERED: Furosemide 20 MG/2 ML VIAL SLOW IVP SCH ×2 (13:15→19:00)
[2021-07-17] MEDS: Insulin Regular 300 UNITS/3 ML VIAL SC PRN (14:21)
[2021-07-17] MEDS ORDERED: traMADol HCl 50 MG TAB PER TUBE PRN (18:30)
[2021-07-18] MEDS: Acetaminophen 325 MG TAB PER TUBE SCH ×3 (00:04→14:44)
[2021-07-18] MEDS: Hydrocortisone Sod Succ/PF 100 mg/2 ml Vial IVP SCH ×2 (03:10→08:40)
[2021-07-18 03:27] LABS: #Eosinphils 0.1 thou/uL (0.0-0.7); #Lymphocytes 0.9 thou/uL (1.20-3.40); #Monocytes 0.7 thou/uL (0.11-0.59); #Neutrophils 5.7 thou/uL (1.40-6.50); %Basophils 0.4 % (0.0-1.0); %Eosinophils 1.6 % (0.0-10.0); %Lymphocytes 11.7 % (21.0-51.0); %Monocytes 9.3 % (0.0-10.0); Hemoglobin 11.3 g/dL (14.0-18.0); Mean Corpuscular HGB CONC 32.6 g/dL (32.0-36.0); Mean Corpuscular Hemoglobin 31.4 pg (27.0-31.0); Mean Corpuscular Volume 96.6 fL (78.0-98.0); Mean Platelet Volume 6.8 fL (7.4-10.4); Platelet Count 343 thou/uL (130-400); Red Blood Cell (RBC) Count 3.61 mill/uL (4.70-6.10); White Blood Cell (WBC) Count 7.3 thou/uL (4.8-10.8)
[2021-07-18 03:52] LABS: Anion Gap 13 mmol/L (10-20); BUN (Urea Nitrogen) 30 mg/dL (8.4-25.7); Calc. Creatinine Clearance 191 mL/min (70-130); Calcium 8.6 mg/dL (7.8-10.44); Carbon Dioxide 29 mmol/L (22-29); Chloride 99 mmol/L (98-107); Glucose 140 mg/dL (70-105); Magnesium 2.2 mg/dL (1.6-2.6); Phosphorus 3.6 mg/dL (2.3-4.7); Potassium 4.2 mmol/L (3.5-5.1); Sodium 137 mmol/L (136-145)
[2021-07-18] MEDS: Oxazepam 10 MG CAP PO SCH ×2 (05:46→14:44)
[2021-07-18] MEDS: Polyethylene Glycol 3350 17 GM Packet PO SCH (08:37)
[2021-07-18] MEDS: Bisacodyl 10 MG SUPP PR SCH (08:37)
[2021-07-18] MEDS: Folic Acid 1 MG TAB PO SCH (08:38)
[2021-07-18] MEDS: Enoxaparin Sodium 40 MG/0.4 ML SYRINGE SC SCH (08:38)
[2021-07-18] MEDS: Thiamine 100 MG TAB PO SCH (08:39)
[2021-07-18] MEDS: Multivit, Therapeutic 1 TAB PO SCH (08:39)
[2021-07-18] MEDS: cefTRIAXone\\ROCEPHIN 2 GM in Sodium Chloride 0.9% 100 ML IVPB SCH (08:39)
[2021-07-18] MEDS: Saccharomyces boulardii 250 MG CAP PO SCH (08:39)
[2021-07-18] MEDS: Senokot S 8.6-50 MG TAB PO SCH (08:39)
[2021-07-18] MEDS: Famotidine/PF 20 mg/2ml Vial SLOW IVP SCH (08:40)
[2021-07-18 12:50] LABS: Actual Bicarbonate (HCO3a) 23.3 mEq/L (22-28); Analyzer IN Cardio OR; Base Excess (BEa) -1.1 mEq/L (-2.0 to +3.0); CO2 Tension 38.2 mmHg (35.0-45.0); Calcium, Ionized (arterial) 1.06 mmol/L (1.12-1.30); Carboxyhemoglobin (COHb) 0.7 gm% (0.0-3.0); Hemoglobin (Hb) 13.7 g/dL (14.0-18.0); O2 Tension (PaO2), arterial 260.7 mmHg (80.0-100.0); Puncture Site Arterial Line
[2021-07-18 13:22] VITALS: BP 146/70
[2021-07-18 13:53] VITALS: TEMP 98.4
[2021-07-18] MEDS: Insulin Regular 300 UNITS/3 ML VIAL SC PRN (14:24)
== END 2021-07-18 15:30 | DRG 28 ==
LOC: ERS 01:03 → CCU 02:00
PROVIDERS: ADMIT Specialist; ATTEND Surgery
PROC: 0RG20A0 Fusion of 2 or more Cervical Vertebral Joints with Interbody Fusion Device, Anterior Approach, Anterior Column, Open Approach (ICD-10-PCS; principal; 2021-07-09)
PROC: 0RG2071 Fusion of 2 or more Cervical Vertebral Joints with Autologous Tissue Substitute, Posterior Approach, Posterior Column, Open Approach (ICD-10-PCS; 2021-07-09)
PROC: 0RB30ZZ Excision of Cervical Vertebral Disc, Open Approach (ICD-10-PCS; 2021-07-09)
PROC: 01N10ZZ Release Cervical Nerve, Open Approach (ICD-10-PCS; 2021-07-09)
PROC: 00UT0JZ Supplement Spinal Meninges with Synthetic Substitute, Open Approach (ICD-10-PCS; 2021-07-09)
PROC: 0PS304Z Reposition Cervical Vertebra with Internal Fixation Device, Open Approach (ICD-10-PCS; 2021-07-09)
PROC: 0T9B70Z Drainage of Bladder with Drainage Device, Via Natural or Artificial Opening (ICD-10-PCS; 2021-07-09)
PROC: 3E043XZ Introduction of Vasopressor into Central Vein, Percutaneous Approach (ICD-10-PCS; 2021-07-09)
PROC: 05HY33Z Insertion of Infusion Device into Upper Vein, Percutaneous Approach (ICD-10-PCS; 2021-07-09)
PROC: 5A1945Z Respiratory Ventilation, 24-96 Consecutive Hours (ICD-10-PCS; 2021-07-09)
PROC: 5A09357 Assistance with Respiratory Ventilation, Less than 24 Consecutive Hours, Continuous Positive Airway Pressure (ICD-10-PCS; 2021-07-11)
PROC: 0B9B8ZZ Drainage of Left Lower Lobe Bronchus, Via Natural or Artificial Opening Endoscopic (ICD-10-PCS; 2021-07-12)
PROC: 0B988ZZ Drainage of Left Upper Lobe Bronchus, Via Natural or Artificial Opening Endoscopic (ICD-10-PCS; 2021-07-12)
PROC: 0BC68ZZ Extirpation of Matter from Right Lower Lobe Bronchus, Via Natural or Artificial Opening Endoscopic (ICD-10-PCS; 2021-07-12)
PROC: 5A12012 Performance of Cardiac Output, Single, Manual (ICD-10-PCS; 2021-07-12)
PROC: 5A1955Z Respiratory Ventilation, Greater than 96 Consecutive Hours (ICD-10-PCS; 2021-07-12)
PROC: 0BH18EZ Insertion of Endotracheal Airway into Trachea, Via Natural or Artificial Opening Endoscopic (ICD-10-PCS; 2021-07-12)
PROC: 0B988ZZ Drainage of Left Upper Lobe Bronchus, Via Natural or Artificial Opening Endoscopic (ICD-10-PCS; 2021-07-14)
PROC: 0B948ZZ Drainage of Right Upper Lobe Bronchus, Via Natural or Artificial Opening Endoscopic (ICD-10-PCS; 2021-07-14)
PROC: 0BCB8ZZ Extirpation of Matter from Left Lower Lobe Bronchus, Via Natural or Artificial Opening Endoscopic (ICD-10-PCS; 2021-07-14)
PROC: 0BC68ZZ Extirpation of Matter from Right Lower Lobe Bronchus, Via Natural or Artificial Opening Endoscopic (ICD-10-PCS; 2021-07-14)
DX: S14.157A Other incomplete lesion at C7 level of cervical spinal cord, initial encounter (principal); J96.00 Acute respiratory failure, unspecified whether with hypoxia or hypercapnia; R53.2 Functional quadriplegia; I46.9 Cardiac arrest, cause unspecified; J69.0 Pneumonitis due to inhalation of food and vomit; T79.4XXA Traumatic shock, initial encounter; N17.9 Acute kidney failure, unspecified; E87.2 Acidosis; D62 Acute posthemorrhagic anemia; I82.811 Embolism and thrombosis of superficial veins of right lower extremity; E27.40 Unspecified adrenocortical insufficiency; G96.09 Other spinal cerebrospinal fluid leak; S12.590A Other displaced fracture of sixth cervical vertebra, initial encounter for closed fracture; S14.156A Other incomplete lesion at C6 level of cervical spinal cord, initial encounter; S09.90XA Unspecified injury of head, initial encounter; S12.690A Other displaced fracture of seventh cervical vertebra, initial encounter for closed fracture; F10.129 Alcohol abuse with intoxication, unspecified; E78.5 Hyperlipidemia, unspecified; S00.03XA Contusion of scalp, initial encounter; I12.9 Hypertensive chronic kidney disease with stage 1 through stage 4 chronic kidney disease, or unspecified chronic kidney disease; E11.22 Type 2 diabetes mellitus with diabetic chronic kidney disease; N18.9 Chronic kidney disease, unspecified; M48.02 Spinal stenosis, cervical region; E83.51 Hypocalcemia; E83.42 Hypomagnesemia; E83.39 Other disorders of phosphorus metabolism; E87.6 Hypokalemia; V47.5XXA Car driver injured in collision with fixed or stationary object in traffic accident, initial encounter; Y92.89 Other specified places as the place of occurrence of the external cause; Z88.0 Allergy status to penicillin
CPT/HCPCS: 31500; 31624; 36415; 36416; 36430; 36600; 70450; 70496; 70498; 71045; 71260; 71275; 72125; 72141; 72170; 74018; 74177; 76000; 80048; 80053; 80306; 80307; 81001; 82533; 82805; 83605; 83735; 83880; 84100; 85025; 85610; 85730; 86850; 86900; 86901; 87040; 87070; 87077; 87086; 87186; 87205; 93970; 94002; 94003; 94640; 94660; 94667; 94668; 94760; 96374; 96375; C1713; C1768; C1776; G0390; J0171; J0690; J0696; J1100; J1630; J1650; J1720; J1815; J1940; J1956; J2250; J2270; J2704; J2710; J3010; J3370; J3411; J3475; J3480; J3490; J7030; J7050; J7070; J7620; P9016; P9045; P9048; Q9967; S0028; U0002; U0003; U0005

== ENCOUNTER 2021-09-04 14:25 | Outpatient (CLI) | payer BC | END 2021-09-04 14:26 | disposition home or self-care (01) | LOC: TBSIIMAG 14:25 | PROVIDERS: ATTEND Surgery | DX: S14.109D Unspecified injury at unspecified level of cervical spinal cord, subsequent encounter (principal); S12.200D Unspecified displaced fracture of third cervical vertebra, subsequent encounter for fracture with routine healing; S12.300D Unspecified displaced fracture of fourth cervical vertebra, subsequent encounter for fracture with routine healing; S12.400D Unspecified displaced fracture of fifth cervical vertebra, subsequent encounter for fracture with routine healing; S12.500D Unspecified displaced fracture of sixth cervical vertebra, subsequent encounter for fracture with routine healing; S12.600D Unspecified displaced fracture of seventh cervical vertebra, subsequent encounter for fracture with routine healing; Z98.1 Arthrodesis status | CPT/HCPCS: 72040 ==